=== PATIENT | male | born 1995 | race Hispanic/Latino ===

== ENCOUNTER 2024-08-10 09:30 | Emergency (ER) | payer SELFPAY ==
[2024-08-10] MEDS ORDERED: Ketorolac Tromethamine 30 MG (1 mL) VIAL ONE (09:49)
== END 2024-08-10 11:05 | disposition home or self-care (01) ==
LOC: NAV ERS 09:30
DX: S23.41XA Sprain of ribs, initial encounter (principal); X50.1XXA Overexertion from prolonged static or awkward postures, initial encounter
CPT/HCPCS: 71250; 74177; 96372; J1885